=== PATIENT | female | born 1940 | race Caucasian/White ===

== ENCOUNTER 2016-12-29 21:07 | Inpatient (IN) ==
[2016-12-30] MEDS ORDERED: 0.9 % Sodium Chloride 1,000 ML ONE (01:32)
[2016-12-30] MEDS ORDERED: Acetaminophen 325 MG TABLET PO PRN (03:16)
[2016-12-30] MEDS ORDERED: *HR* Morphine 2 MG/ML SYRINGE IVP PRN (03:16)
[2016-12-30] MEDS ORDERED: Naloxone 0.4 MG/ML INJ IVP PRN (03:16)
[2016-12-30] MEDS ORDERED: *HR* Dextrose 50 % in Water (Syg) 50 ML SYRINGE IVP PRN (03:16)
[2016-12-30] MEDS ORDERED: Ondansetron 4 MG/2 ML VIAL IVP PRN ×2 (03:16→11:10)
[2016-12-30] MEDS ORDERED: Ketorolac 30 MG/ML VIAL IVP STA (03:16)
[2016-12-30] MEDS ORDERED: D5% in Water 1,000 ML IVC PRN (03:16)
[2016-12-30] MEDS ORDERED: Ondansetron 4 MG/2 ML VIAL IVP STA (03:16)
[2016-12-30] MEDS ORDERED: Pantoprazole 40 MG VIAL IVP STA (03:16)
[2016-12-30] MEDS ORDERED: Dextrose Gel 15 GM PO PRN ×2 (03:16)
[2016-12-30] MEDS ORDERED: *HR* OxyCODONE Immed Rel 5 MG TABLET PO PRN (03:16)
[2016-12-30] MEDS ORDERED: Scopolamine Patch 1.5 MG PATCH.TD72 TD ONE (03:26)
[2016-12-30] MEDS ORDERED: 0.9 % Sodium Chloride 500 ML IVC ONE (03:26)
[2016-12-30] MEDS ORDERED: *HR* Metoprolol 5 MG/5 ML VIAL IVP PRN ×2 (03:27→16:49)
[2016-12-30] MEDS ORDERED: 0.9 % Sodium Chloride 1,000 ML IVC SCH (03:30)
[2016-12-30] MEDS: Metoclopramide 10 MG/2 ML VIAL IVP PRN ×2 (04:03→10:35)
--- NOTE | 2016-12-30 04:06 | Internal Med History&Physical ---
Date of Encounter: 12/30/16 Time of Encounter: 03:00 Assessment and Plan (1) Intractable abdominal pain Current visit: Yes Status: Acute . (2) Intractable nausea and vomiting Current visit: Yes Status: Acute . Qualifiers: Vomiting type: cyclical vomiting Qualified Code(s): G43.A1 - Cyclical vomiting, intractable (3) Gastroenteritis Current visit: Yes Status: Acute . (4) Pancreatitis Current visit: Yes Status: Acute . Qualifiers: Chronicity: acute Pancreatitis type: unspecified pancreatitis type Acute pancreatitis complication: unspecified Qualified Code(s): K85.90 - Acute pancreatitis without necrosis or infection, unspecified (5) Cholelithiasis Current visit: Yes Status: Acute . Qualifiers: Cholelithiasis location: gallbladder Cholecystitis presence: without cholecystitis Biliary obstruction: without biliary obstruction Qualified Code(s): K80.20 - Calculus of gallbladder without cholecystitis without obstruction (6) Hypokalemia Current visit: Yes Status: Acute . Internal Medicine - H&P: HPI Chief complaint: Intractable nausea and vomiting Admitted From: Hospital to Hospital Transfer ([facility] inpatient transfer ([place], [place])) Plans for Post Hospital Care: Home History of present illness: Ms. ALEX is a 76 year old female hospital transfer [facility] ( [place], [place]) inpatient with intractable nausea vomiting abdominal pain with associated fluid and electrolyte deficits. Patient's chronic medical problems include hypertension, dyslipidemia, GERD, type II DM, COPD, nonsmoker. She is transferred to after admission initiated on December 26 for intractability of her presenting complaints of nausea vomiting and associated hypokalemia due to acute gastroenteritis unspecified. Patient provides a history of hiatal hernia which is been symptomatic off and on over the years with episodes that flare such as present symptoms with nausea vomiting abdominal pain and inability to maintain consistent oral intake. Her last bout was in September 2016. She acknowledges a feeling of epigastric fullness, early satiety, nausea, belching and increased frequency which at times seems to relieve discomfort reduces or vomiting. Symptoms seem to escalate rather then de-escalate bringing her to the [facility] for evaluation. In the emergency department at [facility] her lipase was found to be slightly elevated at 324, potassium low at 3.1, cardiac injury profile was negative. CT scan of the abdomen through pelvis with contrast revealed small gallstones, 2 pancreatic cysts, a nonobstructed hiatal hernia and diverticular diverticulosis coli without acute diverticulitis. Due to epigastric pain the patient underwent trending of her troponin and cardiac profiles to rule out atypical cardiac angina. Serial enzymes and EKG as well as telemetry there was reported as negative. Patient was started on clear liquids to be advanced as tolerated along with intravenous fluid rehydration anti-emetics therapy and potassium replacement. She continued to have a elevated lipase with normal liver function tests and persistent hyperkalemia as low as 2.7. Due to continued inability to tolerate oral intake and necessary medications the patient's family became concerned and requested evaluation by gastroenterology. This facilitated transfer to [facility] at the request of patient's primary care physician. Laboratory prior to transfer included a WBC of 12 hemoglobin 12.5 platelet 282,000 with an increase in neutrophil differential. Metabolic panel was normal except for potassium of 2.7. CO2 is 32 BUN 19 creatinine 0.68. Glucose 146 calcium 8.5. LFTs normal. Albumin 3.3 with a total of 6.3. Magnesium 2.1. CPK and CK-MB and troponin high sensitivity measurements were normal x3. CT abdomen and pelvis with contrast and showed a small hiatal hernia with a 4 cm diverticulum located just above the diaphragm. Small amount of surrounding fluid noted. Small cystic-appearing masses within the head of the pancreas. Imaging nonspecific. Diverticulosis coli without diverticulitis. A low-density lesion within the lateral aspect of the left hepatic lobe likely cyst measuring 5.4 x 4.1 cm. A few scattered tiny cysts noted. Gallstones in the gallbladder. Calcifications in the spleen. Moderate distention of stomach. Profile was normal with cholesterol 147 and triglycerides of 65. Amylase 41. Urinalysis demonstrated large ketones. Large leukocyte esterase. 20 WBC. 2 RBC. 2 epithelial cells. Few bacteria. EKG demonstrated normal sinus rhythm with no acute ischemic changes. The patient's influenza and pneumococcal vaccinations are reportedly current. Given the persistence of patient's symptoms she will undergo further evaluation and the disposition. Preliminary impression suggests acute, recurrent gastroenteritis associated dyspepsia and early satiety. Presentation is associated with mild acute and likely chronic recurrent pancreatitis. Presentation is further complicated by notation of cholelithiasis evaluation to rule out gallstone induced pancreatitis as well as rule out of atypical pancreatic disease will be pursued. Urinary sediment suggests concomitant UTI. 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 She was previously on chlorthalidone therapy with potassium replacement for hypertension. The patient was visited and interviewed and examined. Cumulative laboratory and radiographic data base will be considered and discussed. Pertinent ancillary medical records including ECW and PCI documentation when available was reviewed and considered. Given the patient's presenting concerns, past medical history, clinical findings and symptoms, she is admitted at this time will undergo further evaluation and disposition. Orders were written as per Computerized physician order dispatcher system.......................................................................... .................... Consultative opinion will be sought as clinical circumstances justify. Pain management needs will be addressed. Laboratory /radiographic data base will be updated as appropriate. Studies include: Cultures blood urine and sputum, GI stool panel, cardiac injury panel , BNP, coags, metabolic and hematologic panel, magnesium, phosphorus, ionized calcium, thyroid panel, lipid profile, A1c, C-peptide, CRP, sedimentation rate, respiratory virus panel, blood gas, lactic acid, serologies, etc. Precautions: Aspiration, fall, delirium protocol/surveillance initiated. Telemetry with continuous hemodynamic monitoring and pulse oximetry initiated. Empiric antibody coverage: Intravenous Rocephin and azithromycin pending culture data. Special studies: CT chest/abd/pelvis, MRCP, US gallbladder, chest x-ray, telemetry, EKG. Pulmonary toilet: Incentive spirometry. PRRN: aerosol bronchodilator, mucolytic , antitussive. Supplemental oxygen. Corticosteroid therapyPRN. CPAP/BiPAP supplemental oxygen deliveryPRN. Aerosol Mucomyst therapyPRN. Bowel rest. Clear liquid diet. Antidiabetic, probiotic, prokinetic therapy initiated. Strict fluid input output and daily weight measurements. Fluid and electrolyte repletion efforts will proceed. Careful attention to fluid balance and renal recovery will be emphasized. Avoidance of nephrotoxic exposure and adverse drug drug interaction in the setting of impaired renal function will be monitored closely. Acute coronary syndrome protocol/surveillance initiated. DVT and PUD prophylaxis initiated: PPI therapy, intermittent pneumatic cuffs. Subcutaneous heparin. Early ambulation will be encouraged. Immunization updates recommended. Influenza and pneumococcal vaccinations as part of ongoing preventative healthcare recommendations strongly recommended. Smoking cessation counseling briefly addressed. Patient is a nonsmoker. Advanced care directive discussion briefly addressed. Patient does not declare any healthcare restrictions at this time. Cardiovascular risk appraisal and cardiovascular risk reduction efforts will be emphasized. Physical /occupational therapy may be counseled to evaluate patient's function capacity and progressive mobility if her circumstances justify. Sliding scale insulin coverage, ADA dietary restraint and schedule an as-needed basis fingerstick glucose assessments were initiated. Nutrition/diabetes education counseling may be considered as circumstances justify. Metformin therapy will be withheld pending the discharge planning goals. Outpatient medication schedules will be reviewed, confirmed and facilitated as appropriate. Reconciliation of home treatments including adjustments, substitutions and reintroduction into the treatment regimen will address necessary maintenance therapies for chronic pre-existing medical conditions. Plan of care has been reviewed and discussed in detail with the patient. Questions addressed. Hospital course dictated by clinical findings, treatment response and potential consultative interventions. Patient is a risk for further acute clinical decline due to her age, chief complaints and comorbid conditions. Condition is serious. Prognosis is guarded. CODE STATUS is full. Past Med Surg Social Fam HX - Past Medical History Source: old records reviewed Medical history: arthritis, COPD, diabetes, GERD, hyperlipidemia, hypertension, other Psychiatric history: no psych history - Past Surgical History Surgical History: other, vascular surgery, LE vascular intervention - Social History Smoking Status: Never smoker Smokeless Tobacco Status: No Alcohol use: none Drug use: none Occupational status: retired Current living situation: Home, With Family Activity Level: Independent ambulation, Mostly sedentary Recent Out of Country Travel Within the Last 8 Weeks: No Exposure or Possible Exposure to Illness During Travel: No Internal Medicine - H&P: Meds Aspirin [Lo-Dose Aspirin EC] 81 tab ORAL RINSE DAILY 12/30/16 [History] Atenolol/Chlorthalidone [Tenoretic 50 Tablet] 1 each PO DAILY 12/30/16 [History] Atorvastatin [Lipitor] 40 mg PO HS 12/30/16 [History] Colestipol HCl [Colestid] 1 tab PO TID 12/30/16 [History] Metformin HCl [Fortamet] 500 mg PO BID 12/30/16 [History] Pantoprazole Sodium [Protonix] 40 mg PO DAILY 12/30/16 [History] Potassium Chloride [K-Tab ER] 20 meq PO DAILY 12/30/16 [History] Allergies codeine Adverse Reaction (Verified 12/29/16 23:30) Swelling of the Eye All Systems PM: A 10-system review of systems was performed and is negative for pertinent findings except as documented above in the HPI. - Constitutional Constitutional: as per HPI, fatigue, malaise, weakness, no chills, no fever(s), no night sweats - EENT Eyes: as per HPI, no change in vision, no discharge, no pain, no photophobia Ears: as per HPI, no ear discharge, no ear pain, no tinnitus Nose, mouth and throat: as per HPI, no dysphagia, no nasal discharge, no neck pain, no sore throat - Cardiovascular Cardiovascular ROS IM: as per HPI, lightheadedness, no chest pain, no diaphoresis, no dyspnea, no palpitations, no syncope - Respiratory Respiratory: as per HPI, no cough, no dyspnea, no wheezing, no excessive phlegm production - Gastrointestinal Gastrointestinal: as per HPI, abdominal pain, belching, bloating, change in bowel habits, change in stool character, cramping, diarrhea, dyspepsia, early satiety, loose stools, other, no coffee ground emesis, no constipation, no dysphagia, no hematemesis, no hematochezia, no melena, no nausea, no vomiting - Genitourinary Genitourinary: as per HPI, no change in urinary stream, no dysuria, no flank pain, no hematuria - Musculoskeletal Musculoskeletal ROS IM: as per HPI, no numbness, no tingling - Integumentary Integumentary IM: as per HPI, no rash, no unusual bruising - Neurological Neurological ROS: as per HPI, no confusion, no convulsions, no focal weakness, no numbness, no tingling, no tremor(s) - Psychiatric Psychiatric: as per HPI - Endocrine Endocrine IM: as per HPI - Hematologic/Lymphatic Hematologic/Lymphatic: as per HPI, no easy bruising - Allergic/Immunologic Allergic/Immunologic: as per HPI - Constitutional Vitals: Temp Pulse Resp BP Pulse Ox 97.6 F 86 20 148/92 93 L 12/30/16 00:10 12/30/16 00:10 12/30/16 00:10 12/30/16 00:10 12/30/16 00:10 General appearance: Present: mild distress, A&O X 3, answers questions appropriately - Head Head exam: Present: atraumatic, normocephalic - Eye Eye exam: Present: EOMI, PERRL, conjuntiva pink, sclera anicteric Pupils: Present: normal accommodation, PERRL - ENT ENT exam: Present: mucous membranes moist, normal oropharynx - Neck Neck exam general surgery: Present: full ROM, supple, trachea midline. Absent: lymphadenopathy - Respiratory Respiratory exam: Present: decreased breath sounds, CTAB. Absent: accessory muscle use, rales, rhonchi, wheezes - Cardiovascular Cardiovascular exam: Present: distant heart sounds, RRR, +S1, +S2. Absent: diastolic murmur, gallop, rubs, systolic murmur - GI/Abdominal GI/Abdominal exam: Present: normal bowel sounds, soft, no peritoneal signs. Absent: distended, tenderness - Extremities Exam Extremities exam: Present: full ROM, warm, radial pulses palpable and symetrical. Absent: calf tenderness, cyanotic, pedal edema - Neurological Exam Neurological exam: Present: alert, CN II-XII intact, oriented X3, no focal deficits. Absent: pronater drift, facial droop, speech deficit - Psychiatric Psychiatric exam: Present: normal affect, normal mood - Skin Skin exam: Present: dry, intact, warm. Absent: petechiae, rash, urticaria, vesicles Internal Med - H&P Results - Labs Labs: Vital Signs Temp Pulse Resp BP Pulse Ox 12/30/16 00:10 97.6 F 86 20 148/92 93 L Intake and Output 12/29/16 12/29/16 12/30/16 15:59 23:59 07:59 Intake Total 0 / 0 Output Total 100 / 100 Balance -100 / -100 Intake: Oral 0 / 0 Output: Urine 100 / 100 Other: Weight 70.307 kg 77.927 kg Patient Weight 12/30/16 23:59 Weight 77.927 kg Allergies Allergy/AdvReac Type Severity Reaction Status Date / Time codeine AdvReac Swelling Verified 12/29/16 23:30 of the Eye
[2016-12-30] MEDS: 0.9 % Sodium Chloride w KCl 20 MEQ/1,000 ML MLS IVC SCH ×2 (04:07→22:28)
[2016-12-30 04:34] LABS: Basophils % 0.1 %; Hematocrit 41.9 % (35.3-44.9); Hemoglobin 13.8 g/dL (11.5-15.4); Immature Granulocytes % 0.6 % (0-4); Lymphocytes # 0.8 K/mcL (0.6-4.6); Lymphocytes % 4.9 %; Mean Corpuscular HGB Conc 32.9 g/dL (31.6-35.5); Mean Corpuscular Hemoglobin 29.2 pg (28.0-33.3); Mean Corpuscular Volume 88.6 fL (83.0-100.0); Mean Platelet Volume 9.6 fL (9.4-12.4); Monocytes # 1.2 K/mcL (0.0-1.3); Monocytes % 7.4 %; Neutrophils # 13.6 K/mcL (1.6-8.9); Platelet Count 236 K/mcL (140-400); Red Blood Count 4.73 M/mcL (3.82-4.97)
[2016-12-30 04:36] LABS: INR 1.2; Prothrombin Time 12.5 Seconds (9.4-12.1)
[2016-12-30 04:38] LABS: Activated Partial Thrombo Time 22.2 Seconds (26.0-36.0)
[2016-12-30 05:07] LABS: Alanine Aminotransferase 15 Units/L (0-55); Albumin 3.3 g/dL (3.5-5.0); Alkaline Phosphatase 50 Units/L (38-126); Aspartate Amino Transferase 17 Units/L (5-34); BUN/Creatinine Ratio 38 (6-26); Bilirubin,Total 0.7 mg/dL (0.2-1.2); Blood Urea Nitrogen 33 mg/dL (7-20); C-Reactive Protein 17 mg/L (Less than 5); Calcium 8.9 mg/dL (8.6-10.8); Carbon Dioxide 28 mEq/L (19-29); Chloride 102 mEq/L (98-109); Chol/HDL Ratio 2.7 (0-4.9); Cholesterol 141 mg/dL (< 200); Globulin 3.2 g/dL (2.4-3.5); Glucose 168 mg/dL (70-99); HDL Cholesterol 52 mg/dL (40-59); LDL Cholesterol,Calculated 70 mg/dL (0-99); Magnesium 2.1 mg/dL (1.6-2.6); Osmolality,Calculated 305 (280-300); Phosphorous 3.4 mg/dL (2.3-4.7); Potassium 3.1 mEq/L (3.5-4.5); Sodium 142 mEq/L (136-145); Total Protein 6.5 g/dL (6.0-8.3); Triglycerides 94 mg/dL (< 150); eGFR For African Americans > 60 (> 60); eGFR For Non-African Americans > 60 (> 60)
[2016-12-30] MEDS: MetroNIDAZOLE 500 MG/100 ML 500 MG/100 ML BAG IVPB SCH ×3 (05:18→21:46)
[2016-12-30 05:30] LABS: Beta-Hydroxybutyric Acid 0.78 mmol/L (0.02-0.27)
[2016-12-30 05:43] LABS: Amylase 37 Units/L (25-125); Lipase 20 Units/L (8-78)
[2016-12-30 06:24] LABS: Thyroid Stimulating Hormone 2.681 mcIU/mL (0.350-4.840)
[2016-12-30] MEDS: Insulin LISPRO 300 UNITS/3 ML VIAL SQ SCH ×3 (08:59→17:31)
[2016-12-30] MEDS ORDERED: Pantoprazole 40 MG VIAL IVP SCH (09:00)
[2016-12-30] MEDS: Pantoprazole 40 MG VIAL IVP SCH ×2 (10:35→21:46)
[2016-12-30] MEDS: Lactobacillus 1 EACH CAP.SPRINK PO SCH ×2 (10:47→22:01)
--- NOTE | 2016-12-30 12:04 | Electrocardiograph Report ---
[place] [id number] Test Date: 2016-12-30 Pat Name: HENNY ALEX Department: 115 Room: 3A Gender: F Claims Attorney: [facility] : 1940 Requested By: Savage Barragan Order Number: [id number] Reading MD: Derian Davis MD Measurements Intervals [place] Rate: 82 P: 39 [place]: 134 QRS: 25 QRSD: 78 T: 32 QT: 371 QTc: 410 Interpretive Statements SINUS RHYTHM LEFT VENTRICULAR HYPERTROPHY AND ST-T CHANGE Electronically Signed On 12-30-2016 12:02:18 EDT by Derian aDvis MD
[2016-12-30] MEDS ORDERED: Potassium Chloride 20 MEQ, Lidocaine 1% 2 ML in D5% in Water 250 ML IVPB ONE (13:38)
[2016-12-30] MEDS ORDERED: Lidocaine -MPF 1% 2 ML VIAL ID PRN (14:56)
[2016-12-30 15:51] LABS: Hemoglobin A1C 5.8 %
--- NOTE | 2016-12-30 16:47 | Internal Med Progress Note ---
Date of Encounter: 12/30/16 Time of Encounter: 14:00 - Assessment and plan (1) Atrial fibrillation with rapid ventricular response Current Visit: Yes Status: Acute Assessment and plan: New onset. On IV Cardizem drip. High risk for complications. We will also schedule IV metoprolol as patient is not receiving atenolol that she takes at home. We will get 2-D echocardiogram. Trend troponins. (2) Hiatal hernia Current Visit: Yes Status: Chronic Assessment and plan: This is likely contributing to the symptoms of intractable nausea and vomiting. Will get CT scan of the abdomen and pelvis. Follow results. (3) Cholelithiasis Current Visit: Yes Status: Acute Qualifiers: Cholelithiasis location: gallbladder Cholecystitis presence: without cholecystitis Biliary obstruction: without biliary obstruction Qualified Code(s): K80.20 - Calculus of gallbladder without cholecystitis without obstruction (4) Intractable nausea and vomiting Current Visit: Yes Status: Acute Assessment and plan: Remains persistent. On Zofran and Phenergan. We will follow results of the CT scan of the abdomen and pelvis. Qualifiers: Vomiting type: cyclical vomiting Qualified Code(s): G43.A1 - Cyclical vomiting, intractable (5) Pancreatitis Current Visit: Yes Status: Acute Assessment and plan: Improving. Lipase is within normal limits now. AST ALT and alkaline phosphatase are also within normal limits. Qualifiers: Chronicity: acute Pancreatitis type: unspecified pancreatitis type Acute pancreatitis complication: unspecified Qualified Code(s): K85.90 - Acute pancreatitis without necrosis or infection, unspecified - Subjective Interval history: Patient continued to have nausea and vomiting since this morning. She has been nothing by mouth. The left rapid atrial fibrillation this afternoon. Did not respond to IV Cardizem push. Has now been placed on IV Cardizem drip. Feels anxious - Constitutional Vitals: Temp Pulse Resp BP Pulse Ox 97.4 F L 130 18 129/76 91 12/30/16 16:09 12/30/16 16:09 12/30/16 16:09 12/30/16 16:12/30/16 16:09 General appearance: Present: cooperative, mild distress, A&O X 3, answers questions appropriately - Respiratory Respiratory exam: Present: CTAB. Absent: accessory muscle use, rales, rhonchi, wheezes - Cardiovascular Cardiovascular exam: Present: irregular rhythm, +S1, +S2, tachycardia. Absent: diastolic murmur, gallop, rubs, systolic murmur - GI/Abdominal GI/Abdominal exam: Present: diminished bowel sounds, soft, no peritoneal signs. Absent: distended, tenderness - Extremities Exam Extremities exam: Present: warm, radial pulses palpable and symetrical. Absent : calf tenderness, cyanotic, pedal edema - Neurological Exam Neurological exam: Present: CN II-XII intact, oriented X3, no focal deficits. Absent: facial droop, speech deficit - Skin Skin exam: Present: dry, intact Internal Medicine: Result - Labs CBC & Chem 7: 12/30/16 04:01 12/30/16 04:01 Labs: Short CBC 12/30/16 Range/Units 04:01 WBC 15.6 H (4.3-11.1) K/mcL Hgb 13.8 (11.5-15.4) g/dL Hct 41.9 (35.3-44.9) % Plt Count 236 (140-400) K/mcL Neutrophils # 13.6 H (1.6-8.9) K/mcL BMP 12/30/16 04:01 Sodium 142 Potassium 3.1 L Chloride 102 Carbon Dioxide 28 BUN 33 H Creatinine 0.87 Glucose 168 H Calcium 8.9 Cardiac Enzymes 12/30/16 12/30/16 Range/Units 04:01 09:33 Troponin I 0.04 H* 0.03 (0-0.03) ng/mL Liver Function 12/30/16 Range/Units 04:01 Total Bilirubin 0.7 (0.2-1.2) mg/dL AST 17 (5-34) Units/L ALT 15 (0-55) Units/L Alkaline Phosphatase 50 (38-126) Units/L Albumin 3.3 L (3.5-5.0) g/dL - ABG Interpretation ABG results: PT/INR, D-dimer PT 12.5 Seconds (9.4-12.1) H 12/30/16 04:01 - Impressions Impressions Gallbladder Ultrasound 12/30/16 08:30 IMPRESSION: 1. Technically limited study. Large fluid filled structure with debris in the midline abdomen suspected to be a distended stomach. 2. Cholelithiasis with no evidence of acute cholecystitis. D/ / Boris Scott MD / Boris Scott MD Interpreting Provider: Boris Scott MD Chest/Abdomen X-ray 12/30/16 09:47 IMPRESSION: 1. Mild bilateral effusions and lung base atelectasis. 2. Questionable centrally dilated stomach or colonic loop. Further evaluation with CT abdomen/pelvis is recommended. D/ / 12/30/2016 10:54:39 Marino Mcrae MD / lencho Interpreting Provider: Marino Mcrae MD - VTE Documentation of Mechanical Device: Graduated compression elastic hosiery Consult Discharge Plan - Plan Referrals: NO,PCP [Primary Care Provider] - - Attending Attestation This document has been at least partially created by Flatora recognition technology by Dr. Mcmahon. Errors in grammar, wording or other phrases may exist. If errors are found after the documentation is signed, they will be addressed individually in the addendum section of this document when appropriate.
[2016-12-30] MEDS ORDERED: *HR* Heparin 5,000 UNIT/ML VIAL SQ SCH (18:00)
[2016-12-30] MEDS ORDERED: Insulin LISPRO 300 UNITS/3 ML VIAL SQ SCH (21:00)
[2016-12-31 03:37] LABS: Hematocrit 41.2 % (35.3-44.9); Hemoglobin 13.5 g/dL (11.5-15.4); Immature Platelets 4.4 % (1.1-6.1); Mean Corpuscular HGB Conc 32.8 g/dL (31.6-35.5); Mean Corpuscular Hemoglobin 29.4 pg (28.0-33.3); Mean Corpuscular Volume 89.8 fL (83.0-100.0); Mean Platelet Volume 9.8 fL (9.4-12.4); Platelet Count 275 K/mcL (140-400); Red Blood Count 4.59 M/mcL (3.82-4.97); Red Cell Distribution Width 14.2 % (11.5-14.5)
[2016-12-31 03:50] LABS: BUN/Creatinine Ratio 45 (6-26); Calcium 9.1 mg/dL (8.6-10.8); Carbon Dioxide 25 mEq/L (19-29); Chloride 104 mEq/L (98-109); Glucose 182 mg/dL (70-99); Osmolality,Calculated 312 (280-300); Potassium 3.5 mEq/L (3.5-4.5); Sodium 143 mEq/L (136-145); eGFR For African Americans > 60 (> 60); eGFR For Non-African Americans 55 (> 60)
[2016-12-31 03:51] LABS: Blood Urea Nitrogen 45 mg/dL (7-20)
[2016-12-31 04:17] LABS: Lymphocytes # 1.5 K/mcL (0.6-4.6); Monocytes # 2.9 K/mcL (0.0-1.3); Platelet Estimate Normal (Normal)
[2016-12-31] MEDS ORDERED: *HR* Digoxin 0.5 MG/2 ML AMPUL IVP SCH ×2 (04:26→11:00)
[2016-12-31] MEDS: MetroNIDAZOLE 500 MG/100 ML 500 MG/100 ML BAG IVPB SCH (04:28)
[2016-12-31] MEDS ORDERED: Bumetanide 1 MG/4 ML VIAL IVP STA (05:50)
[2016-12-31] MEDS ORDERED: *HR* Heparin 5,000 UNIT/ML VIAL SQ SCH (06:00)
[2016-12-31 06:50] LABS: VBG HCO3 28.5 mEq/L (21-27); VBG PH 7.39 pH Units (7.32-7.42)
[2016-12-31] MEDS: Lactobacillus 1 EACH CAP.SPRINK PO SCH (07:36)
[2016-12-31] MEDS: Pantoprazole 40 MG VIAL IVP SCH (07:48)
[2016-12-31] MEDS: Insulin LISPRO 300 UNITS/3 ML VIAL SQ SCH (07:52)
[2016-12-31] MEDS: Ipratropium/Albuterol Neb 3 ML IH SCH ×2 (08:04→11:46)
[2016-12-31] MEDS ORDERED: Enoxaparin Weight Dosing SQ SCH (08:11)
[2016-12-31] MEDS ORDERED: *HR* Heparin 5,000 UNIT/ML VIAL IVP ONE (08:54)
[2016-12-31] MEDS ORDERED: *HR* Heparin 5,000 UNIT/ML VIAL IVP PRN ×4 (08:54→12:00)
[2016-12-31] MEDS ORDERED: Heparin 25,000 UNIT/500 ML D5W 25,000 UNIT/500 ML MLS IVC SCH (09:00)
--- NOTE | 2016-12-31 10:52 | ECHO - Doppler Report ---
Echo with Saline Contrast Name: HENNY ALEX Date of Study: 12/30/2016 Date: 1940 Ht: 66.0 in Medical Record#: [id number] Age: 76 Wt: 171.0 lb Gender: Female BSA: 1.87 Order #: [id number] Location: [facility] Room #: 3A53 Reading Physician: Carolina Street DO Help Desk Team Leader: Anya Little Ordering Physician: Savage Barragan MD Primary Physician: None Indications: r/o ACS, Elevated troponin Impressions: LVEF 60-65%. Normal left ventricular size and systolic function. Indeterminate left venticular diastoic function Normal right ventricular size and function. Moderate tricuspid regurgitation. Mild pulmonic regurgitation. Mild to moderate pulmonary hypertension by TR gradient. IVC is not well visualized. No PFO with saline contrast. Pleural effusion. Left Ventricular Wall Motion: Rest Echo Findings All wall segments showed normal motion. Findings: Study Quality * Technically adequate exam. ECG Findings * Atrial fibrillation. Left Ventricle * Indeterminate diastolic function. * LVEF 60-65%. * Normal LV chamber size, wall thickness and function. Left Atrium * Mildly dilated left atrium. Mitral Valve * Normal mitral valve structure. * No mitral stenosis. * Trace mitral regurgitation. Aortic Valve * No aortic regurgitation. * Trileaflet aortic valve. * Normal aortic valve structure. * No aortic stenosis. Aorta * Normally sized aortic root. Tricuspid Valve * Moderate tricuspid regurgitation. * Normal tricuspid valve structure. Pulmonic Valve * Pulmonic valve is not well visualized. * No pulmonic stenosis. * Mild pulmonic regurgitation. Pulmonary Artery * Pulmonary artery not well visualized. Right Atrium * Normal right atrial size. Right Ventricle * Normal right ventricular structure and function. Interatrial Septum * No evidence of PFO with agitated saline contrast. Pericardium * There is a pericardial effusion present. IVC * The IVC is not well evaluated. History Hypertension Hypercholesteremia Family History of CAD Contrast: Agitated saline 20 ml. Measurements: BP: 127/ 80 2D Normal Values IVSd: 1.00 cm 0.6 - 1.0 cm LVIDd: 1.80 cm 3.7 - 5.6 cm LVPWd: 1.00 cm 0.6 - 1.1 cm LVIDs: 1.20 cm 1.5 - 3.6 cm AO: 2.50 cm < 4.0 cm LA: 3.00 cm 2.0 - 4.0cm %FS: 33.30 cm >25 % LA volume: 40 Mitral Valve Peak E:.91 m/sec Peak E' Lat Matteo:9.36 cm/s Peak E' Med Matteo:8.09 cm/s E/E' Lat Ratio:9.7 E/E' Med Ratio:11.2 Tricuspid Valve TV Regurg Peak Grad: 48.00mmHg TV Regurg Peak Matteo: 3.45m/sec Updated by Carolina Street on 12/31/2016 10:48:03 AM electronically signed on 12/31/2016 10:48:38 AM with status of Final Wall Motion [place]: 1=Normal, 2=Hypokinesis, 3=Akinesis, 4=Dyskinesis, 5=Aneurysmal, 6=Hyperkinetic, X=Not Visualized (Blank)=Missing
--- NOTE | 2016-12-31 11:38 | Discharge Summary ---
Date of Encounter: 12/31/16 Time of Encounter: 11:31 - Discharge Diagnosis (1) Acute gastric volvulus Priority: Primary Status: Acute (2) Bilateral pulmonary embolism Priority: Secondary Status: Acute (3) Atrial fibrillation with rapid ventricular response Priority: Secondary Status: Acute (4) Hiatal hernia Priority: Secondary Status: Chronic (5) Cholelithiasis Priority: Secondary Status: Acute Qualifiers: Cholelithiasis location: gallbladder Cholecystitis presence: without cholecystitis Biliary obstruction: without biliary obstruction Qualified Code(s): K80.20 - Calculus of gallbladder without cholecystitis without obstruction (6) Intractable nausea and vomiting Priority: Secondary Status: Acute Qualifiers: Vomiting type: cyclical vomiting Qualified Code(s): G43.A1 - Cyclical vomiting, intractable (7) Pancreatitis Priority: Secondary Status: Acute Qualifiers: Chronicity: acute Pancreatitis type: unspecified pancreatitis type Acute pancreatitis complication: unspecified Qualified Code(s): K85.90 - Acute pancreatitis without necrosis or infection, unspecified - Discharge Medications Home Medications: Acetaminophen [Tylenol] 325 mg PO Q4H PRN 12/30/16 [History] Aspirin 81 mg PO DAILY 12/30/16 [History] Atenolol/Chlorthalidone [Tenoretic 50 Tablet] 1 each PO DAILY 12/30/16 [History] Atorvastatin [Lipitor] 40 mg PO HS 12/30/16 [History] Colestipol HCl [Colestid] 1 tab PO TID 12/30/16 [History] Insulin ASPART [Novolog] 0 - 12 unit SQ TID PRN 12/30/16 [History] Metformin HCl [Fortamet] 500 mg PO BID 12/30/16 [History] Nitroglycerin [Nitrostat] 0.4 mg SL Q5M PRN 12/30/16 [History] Ondansetron Oral Soln [Zofran Oral Soln] 2 mg PO Q4H PRN 12/30/16 [History] Pantoprazole Sodium [Protonix] 40 mg PO DAILY 12/30/16 [History] Potassium Chloride [K-Tab ER] 40 meq PO DAILY 12/30/16 [History] Promethazine [Phenergan] 25 mg IV Q6H PRN 12/30/16 [History] Allergies/Adverse Reactions: Allergies codeine Adverse Reaction (Verified 12/30/16 09:16) Swelling of the Eye Procedures/tests Complete & Pending: Procedures Performed prior 72 hours Category Date Time Status CT abd pelvis w iv and oral [CT] Stat Cat Scan 12/30/16 20:15 Completed CTA chest [CT angio chest] [CT] Stat Cat Scan 12/31/16 05:54 Completed US gall bladder [US] Routine Exams 12/30/16 08:30 Completed ECG 12 lead ECG [ECG] AM 0600 Y 12/30/16 06:00 Stop Req ECG 12 lead ECG [ECG] Stat Y 12/30/16 03:17 Completed EV echocardiogram Stat Y 12/30/16 06:54 Completed Date of admission: 12/30/16 14:40 Primary care physician: PCP NO Consults: 12/29/16 23:29 Consult to Pastoral Services [CONS] Routine Comment: 12/30/16 14:56 Consult to Invasive Line Access Team [CONS] Routine Reason for Consult: limited access, cardizem drip. Line Type: EPIV - Patient Status Disposition: Transfer Other - Discharge Instructions Follow Up With: NO,PCP [Primary Care Provider] - - Diet and Activity Diet: other (Nothing by mouth) Hospital course: Ms. ALEX is a 76 year old female patient with history of COPD, type 2 diabetes mellitus, gastroesophageal reflux disease, hypertension and hiatal hernia who was transferred to our facility yesterday from [facility] with complaints of intractable nausea and vomiting. She had been admitted there for the same complaints without any improvement in her symptoms. She was then transferred to our facility for higher level of care. On evaluation yesterday she continued to have intractable nausea and vomiting. Initial CT scan of the abdomen and pelvis done on initial presentation at [facility] showed hiatal hernia with a 4 cm diverticulum located just above the diaphragm. As the patient continued to have intractable nausea and vomiting and the lack of bowel sounds on my physical examination, we the abdomen and pelvis yesterday. This showed massively distended and fluid filled stomach with severe narrowing of the pylorus consistent with gastric volvulus. There was no abnormal bowel wall thickening suggesting ischemia. Patient has also developed worsening of her leukocytosis. She is on antibiotics with ceftriaxone and metronidazole. I discussed these findings with our surgeon here and she has recommended that the patient be transferred to a higher level of care facility due to her underlying conditions. These include: Bilateral pulmonary embolism: Patient developed hypoxia and was transferred to stepdown unit overnight. A CT scan of the chest with IV contrast shows bilateral pulmonary embolism. Patient has been started on heparin drip intravenously for this condition. She is saturating at 89% on nonrebreather mask. Atrial fibrillation with rapid ventricular response: New onset. Likely related to her pulmonary embolism and hypoxia with mild troponin elevation. The patient was started on Cardizem drip and digoxin and currently her heart rate is rate controlled while the patient is remarkably remains in A. fib . A 2-D echocardiogram has been ordered but the results are currently pending. Acute hypoxia related to bilateral pulmonary embolism. Given these findings, I called [facility] and discussed with on-call surgeon and he has agreed to accept the patient to the surgical intensive care unit for further management. - Time Spent with Patient Total time spent providing and/or coordinating discharge services: Greater than 30 minutes (50 min) - Constitutional Vitals: Temp Pulse Resp BP Pulse Ox 98.1 F 84 20 130/59 91 12/31/16 07:15 12/31/16 10:30 12/31/16 10:30 12/31/16 10:30 12/31/16 10:30 General appearance: Present: cooperative, A&O X 3, answers questions appropriately Exam: Moderate distress - Respiratory Respiratory exam: Present: decreased breath sounds. Absent: accessory muscle use, rales, rhonchi, wheezes Additional comments: Basal crackles - Cardiovascular Cardiovascular exam: Present: irregular rhythm, +S1, +S2. Absent: diastolic murmur, gallop, rubs, systolic murmur - GI/Abdominal GI/Abdominal exam: Present: diminished bowel sounds, soft, tenderness (In the epigastric region), no peritoneal signs. Absent: distended - Extremities Exam Extremities exam: Present: warm, radial pulses palpable and symetrical. Absent : calf tenderness, cyanotic, pedal edema - Neurological Exam Neurological exam: Present: alert, CN II-XII intact, oriented X3, no focal deficits. Absent: facial droop, speech deficit - VTE Documentation of Mechanical Device: Intermittent pneumatic compression device - Attending Attestation This document has been at least partially created by [employer] recognition technology by Dr. Mcmahon. Errors in grammar, wording or other phrases may exist. If errors are found after the documentation is signed, they will be addressed individually in the addendum section of this document when appropriate.
[2016-12-31 11:51] VITALS: BP 114/65
== END 2016-12-31 12:38 | disposition other institution (70) | DRG 391 ==
LOC: 3ANU → 2NNU 12-31 07:42
PROVIDERS: ADMIT Internal Medicine; ATTEND Internal Medicine